=== PATIENT | female | born 1945 | race Caucasian/White ===

== ENCOUNTER 2019-05-08 05:56 | Emergency (ER) | payer MEDICARE, SELFPAY ==
[2019-05-08 06:02] VITALS: BP 184/77; PULSE 76; RESP 16; TEMP 36.9; O2SAT 96; BMI 23.0
[2019-05-08 06:04] VITALS: BP 161/82; PULSE 77; RESP 14; O2SAT 96
[2019-05-08 06:05] VITALS: PULSE 76
--- NOTE | 2019-05-08 06:06 | PC.NURSE ---
Patient states that she was going to get some cheesecake out of the refrigerator and fell down and hit her right arm two days ago. Patient states that she cannot use her right arm without extreme pain. Patient states that she is having 10/10 pain in her right arm. Patient states that her right arm hurts from her shoulder down to her elbow.
--- NOTE | 2019-05-08 06:07 | W.ED.EXTPRO ---
HPI - Extremity Problem General: Chief complaint: Extremity Injury, Upper Stated complaint: r arm pain post fall Time Seen by Provider: 05/08/19 06:07 History of Present Illness: HPI Narrative: 73 yo female presents to the emergency room after a fall yesterday at home she is complaining of right upper arm pain inability to move the arm or use it. She can use her hand flex little bit at the elbow but is severely painful when she does so. She denies any other injuries denies striking her head no loss consciousness. Associated symptoms: Deny chest pain, fever(s) or rash Review of Systems Const: Denies: fever, chills, body aches, change in appetite, fatigue or malaise ENMT: Denies: throat pain, ear pain, nasal discharge or nasal congestion Card: Denies: chest pain, edema, shortness of breath on exertion or shortness of breath when lying down Resp: Denies: shortness of breath, productive cough or non-productive cough GI: Denies: abdominal pain, nausea, vomiting, vomiting blood, coffee grounds in vomit, diarrhea, constipation, bloating, blood in stool or black tarry stool : Denies: flank pain, difficulty urinating, painful urination, urinary frequency or urinary urgency Skin/Breast: Denies: rash or itching PFSH ED PFSH: Social History Smoking and tobacco status: current every day smoker Physical Exam Const: COMMON NORMALS: no apparent distress GENERAL APPEARANCE: cooperative and comfortable ORIENTATION/CONSCIOUSNESS: Yes awake, Yes oriented to person, Yes oriented to place and Yes oriented to time HENMT: COMMON NORMALS: normocephalic, head/scalp atraumatic, hearing grossly normal bilaterally, external ears normal, EAC's normal, TM's normal bilaterally, nasal mucous membranes and turbinates normal, moist oral mucous membranes and oropharynx normal HEAD & SCALP: normocephalic and atraumatic NOSE: nasal mucous membranes and turbinates normal EXTERNAL EAR: Yes external ears normal EXTERNAL AUDITORY CANAL: EAC's normal TYMPANIC MEMBRANE: TM's normal bilaterally Eye: COMMON NORMALS: PERRL, EOMs intact bilaterally, conjunctivae normal and no scleral icterus CONJUNCTIVA: Yes conjunctivae normal PUPIL: Yes PERRL Neck/C-Spine: COMMON NORMALS: full ROM, no lymphadenopathy, supple and no JVD Lymph: LYMPHATIC: no lymphadenopathy noted and no lymphedema noted Resp: COMMON NORMALS: normal respiratory effort, no retractions, no use of accessory muscles and clear to auscultation bilaterally AUSCULTATION: clear to auscultation bilaterally Cardio: COMMON NORMALS: no JVD, regular rate, regular rhythm and no murmurs RATE: regular rate RHYTHM: regular rhythm GI: COMMON NORMALS: soft to palpation and no hepatosplenomegaly AUSCULTATION: Yes normoactive bowel sounds PALPATION: Yes soft, No tender, No guarding and Yes no hepatosplenomegaly Extremity: COMMON NORMALS: normal capillary refill, no clubbing, cyanosis or edema, no calf tenderness and no pedal edema RIGHT UPPER EXTREMITY: Yes upper arm (Pain and swelling to the proximal humerus consistent with proximal humerus fracture) Right upper arm: Yes inspection and Yes palpation Neuro: SENSORIUM/ORIENTATION: Yes oriented to person, Yes oriented to place and Yes oriented to time Skin: COMMON NORMALS: no rashes or lesions noted GENERAL SKIN EXAM: no rashes or lesions noted Course ED course: Impacted proximal humerus fracture. Will sling arm hydrocodone as needed for pain follow-up with Ortho later this week. Vital Signs: Vital signs: Vital Signs Temperature 98.5 F 05/08/19 06:02 Pulse Rate 64 05/08/19 07:31 Respiratory Rate 18 05/08/19 07:31 Blood Pressure 155/68 05/08/19 07:31 Pulse Oximetry 97 05/08/19 07:31 Discharge Plan Discharge Patient Disposition: Home, Self-Care Clinical Impression: Fracture of humerus Qualifiers: Encounter type: initial encounter Humerus Location: proximal Fracture type: closed Fracture alignment: nondisplaced Laterality: right Condition: Stable Prescriptions: New hydrocodone-acetaminophen 5-325 mg tablet 1 tab PO Q6H PRN (Reason: pain) Qty: 15 RF: 0 Discharge Orders: Discharge Order (Routine); Ordered 05/08/19 Ordered By: Akhil Nuñez Referrals: Abundio Rogel DO [Primary Care Provider] - Discharge Diet: Usual diet Discharge Activity: Increase activity as tolerated Patient Instructions: Hydrocodone/Acetaminophen (By mouth), Fractures - Humerus, How to Use a Sling (GEN), Sling - Wearing Activity Restrictions/Additional Instructions: Referral to Ortho. Remain in sling until released by orthopedics. Discharge Date/Time: 05/08/19 09:02 Coding Level of Care Code ED Investor Relations Coordinator for Ric Ma
--- NOTE | 2019-05-08 06:14 | XR_ITS ---
WS: [id number] [id number] REASON FOR EXAM: fall, pain FINDINGS: Impacted surgical neck fracture of the right humerus. The right shoulder shows normal acromioclavicular joint and clavicles. XR/[place] [id number] IMPRESSION: Impacted surgical neck fracture of the proximal humerus.
[2019-05-08 07:00] VITALS: BP 80/58; PULSE 70; RESP 18; O2SAT 95
[2019-05-08 07:31] VITALS: BP 155/68; PULSE 64; RESP 18; O2SAT 97
[2019-05-08] MEDS: HYDROcodone-acetaminophen 5-325 mg Tablet 1 TAB PO (07:37)
--- NOTE | 2019-05-08 08:00 | PC.NURSE ---
Attempted to contact patient family member per her request for a ride home. Unable to reach, I have left a voicemail for Katherine in regards to patient discharge and need for ride. I have asked her to call back to the ER.
--- NOTE | 2019-05-08 08:34 | PC.NURSE ---
Attempted to contact patient family member again. No answer. Left a second message. Spoke with the patient regarding the family member ride. Patient does have medicaid and agrees to attempting to set up [employer] transportation.
--- NOTE | 2019-05-08 08:53 | PC.NURSE ---
Contacted [employer], spoke with Linda. The patient has a different type of spend-down medicaid and does not quialify for [employer] transportation. Will discharge to waiting area and continue to wait on family member to call back; patient verbalized understanding of this.
--- NOTE | 2019-05-09 08:41 | DCPLANNER ---
used car manager had message to schedule a follow up appointment for patient with ortho. used car manager called ortho, spoke with Pat, gave clinic patients information. used car manager was told that patients information would be printed and reviewed. Clinic will call complex case manager and patient with appointment information.
--- NOTE | 2019-05-11 15:24 | DCPLANNER ---
division operations manager called ortho to confirm if a follow up appointment had been scheduled for patient. division operations manager was told that clinic has attempted to contact patient at the phone number [phone] and it was not in service. division operations manager tried to contact patient at this number and was told that the number was not in service. Clinic did call patients Katherine davenport at [phone] and left a voicemail for patient to return clinics phone call to schedule an appointment.
== END 2019-05-08 09:02 | disposition home or self-care (01) ==
LOC: ER 07:47
PROVIDERS: Emergency Provider Family Medicine; Family Provider Family Medicine; PCP Family Medicine
DX: S42.211A Unspecified displaced fracture of surgical neck of right humerus, initial encounter for closed fracture (principal); W19.XXXA Unspecified fall, initial encounter; Y92.009 Unspecified place in unspecified non-institutional (private) residence as the place of occurrence of the external cause; F17.200 Nicotine dependence, unspecified, uncomplicated
CPT/HCPCS: 29240; 73060; 99282; 99283

== ENCOUNTER → 2019-05-18 11:00 | Outpatient (BNVA) | payer MEDICARE, SELFPAY | PROVIDERS: Family Provider Family Medicine; PCP Family Medicine; Referring Provider Family Medicine; Visit Provider Specialist | DX: S42.201A Unspecified fracture of upper end of right humerus, initial encounter for closed fracture (principal); X58.XXXA Exposure to other specified factors, initial encounter | CPT/HCPCS: 73030 ==

== ENCOUNTER 2019-05-18 14:52 | Outpatient (CLI) | payer MEDICARE, SELFPAY | END 2019-05-18 14:53 | disposition home or self-care (01) | LOC: SPT 14:53 | PROVIDERS: Family Provider Family Medicine; PCP Family Medicine; Visit Provider Specialist | DX: S42.301D Unspecified fracture of shaft of humerus, right arm, subsequent encounter for fracture with routine healing (principal); S42.201A Unspecified fracture of upper end of right humerus, initial encounter for closed fracture; X58.XXXA Exposure to other specified factors, initial encounter | CPT/HCPCS: 73030; L3670 ==

== ENCOUNTER → 2019-09-11 13:36 | Outpatient (BNVA) | payer MEDICARE, SELFPAY | PROVIDERS: Family Provider Family Medicine; PCP Family Medicine; Referring Provider Nurse Practitioner; Visit Provider Specialist | DX: S42.254A Nondisplaced fracture of greater tuberosity of right humerus, initial encounter for closed fracture (principal); W01.0XXD Fall on same level from slipping, tripping and stumbling without subsequent striking against object, subsequent encounter | CPT/HCPCS: 73030 ==

== ENCOUNTER → 2019-09-13 13:43 | Outpatient (BNVA) | payer MEDICARE, SELFPAY | PROVIDERS: Family Provider Family Medicine; PCP Family Medicine; Visit Provider Nurse Practitioner Family | DX: R19.7 Diarrhea, unspecified (principal) | CPT/HCPCS: 80053; 85025 ==

== ENCOUNTER 2021-06-08 17:04 | Emergency (ER) | payer MEDICARE, SELFPAY ==
[2021-06-08 17:09] VITALS: BP 171/96; PULSE 75; RESP 16; TEMP 37.1; O2SAT 96; BMI 24.7
--- NOTE | 2021-06-08 17:22 | CTR_ITS ---
PROCEDURE INFORMATION: Exam: CT Chest Without Contrast; Diagnostic Exam date and time: 06/08/2021 5:58 PM Age: 75 years old Clinical indication: Injury or trauma; Blunt trauma (contusions or hematomas); Patient HX: C/O L sdied back/chest pain after fall; Additional info: Fall with chest pain left TECHNIQUE: Imaging protocol: Diagnostic computed tomography of the chest without contrast. Radiation optimization: All CT scans at this facility use at least one of these dose optimization techniques: automated exposure control; mA and/or kV adjustment per patient size (includes targeted exams where dose is matched to clinical indication); or iterative reconstruction. COMPARISON: 1. CR XR shoulder RT min 2V* [id number] 09/11/2019 1:43 PM 2. CTA Chest-Pulmonary Emboli 03/16/2014 8:00 PM RADIATION DOSE METRICS: Total DLP (mGy-cm): 414.8 FINDINGS: Lungs: There are emphysematous and fibrotic changes in the upper lobes. Bibasilar nonspecific consolidation is present. In the right lower lobe, there is bronchiectasis with bronchial wall thickening and debris or mucous in the bronchi. Pleural spaces: There are small bilateral pleural effusions. Heart: There is severe atherosclerotic calcification of the coronary arteries. There is no evidence of pericardial fluid collections. Esophagus: No focal wall thickening. Mediastinal space: There are no enlarged mediastinal lymph nodes or masses. Aorta: There is no thoracic aortic aneurysm. There are mild scattered atherosclerotic calcifications throughout the thoracic aorta. Lymph nodes: No enlarged hilar lymph nodes. Diaphragm: There is a small sliding hiatal hernia. Liver: Normal in size and homogeneous density. Bones/joints: There are mildly displaced fractures of the lateral left 7th, and posterior 8th and 9th ribs. Chronic appearing mild superior endplate compression fractures of T10 and L1. Soft tissues: Unremarkable. CT/CT chest wo con [id number] IMPRESSION: Acute mildly displaced fractures of the left 7th (lateral), 8th and 9th (posterior) ribs. Chronic interstitial fibrosis and mild emphysematous changes. Bibasilar areas of consolidation with bronchiectasis and bronchial debris in the right lower lobe. Findings are worsened since the comparison CTA. This may represent chronic bronchiectasis, aspiration pneumonia.
--- NOTE | 2021-06-08 17:23 | W.ED.FALL ---
HPI - Fall General: Chief Complaint: Fall Stated Complaint: LEFT RIB PAIN S/P FALL Time Seen by Provider: 06/08/21 17:06 Source: patient Mode of arrival: EMS Limitations: no limitations History of Present Illness: This patient comes to the emergency department via EMS. She sustained a trip and fall at home on Wednesday. She states that she tripped over her walker while trying to avoid her dog. She states she fell on her left side. She states she did not hit her head but struck predominantly her trunk on her left side. She states that she crawled to the couch and then recovered and has been dealing with the pain for the past 2 days. She states that she finally decided to come to the emergency department to ensure that she did not harm herself seriously. She states she has been eating and drinking normally. She is not any vomiting or diarrhea. She is is a tobacco user and has a chronic cough. She denies any heart disease and takes no daily medications to include no anticoagulants or antiplatelet agents. She states she is able to move her extremities without difficulty. Fall from: standing Place fall occurred: home Loss of consciousness: None Context: tripped/slipped Location of injury: chest Quality: sharp and stabbing Associated symptoms-after fall: Denies abdominal pain, confusion, headache(s), neck pain or numbness Review of Systems Const: Denies: fever(s) or chills Eyes: Denies: change in vision, blurry vision or blind spots ENMT: Denies: throat pain, odynophagia or hoarseness Card: Denies: palpitations, irregular heart rhythm, syncope or pre-syncope Resp: Reports: non-productive cough and pain on inspiration; Denies: wheezing or stridor GI: Denies: abdominal pain, nausea, vomiting or diarrhea : Denies: difficulty voiding, dysuria or urinary frequency Musc: Denies: neck pain, extremity pain, extremity swelling or joint pain Skin/Breast: Denies: rash Neuro: Denies: headache(s), numbness in extremities, weakness in extremities or confusion Adolfo/Lymph: Denies: easy bruising or easy bleeding All/Imm: Denies: urticaria PFSH ED PFSH: Medical History (Updated 06/08/21 @ 20:22 by Carmelo Waller DO) Fracture of surgical neck of humerus Surgical History History of carpal tunnel surgery bilateral History of hip surgery Social History Smoking and tobacco status: current every day smoker Alcohol intake: never Physical Exam Narrative: EXAM NARRATIVE: Patient is alert makes good eye contact. Const: COMMON NORMALS: no acute distress, average body habitus, patient oriented x3 and alert GENERAL APPEARANCE: cooperative HENMT: COMMON NORMALS: normocephalic, atraumatic, Normal nasal mucous membranes and turbinates present, moist oral mucous membranes and oropharynx normal HEAD & SCALP: normocephalic and atraumatic FACE & SINUS: normal facial exam NOSE: Normal nasal mucous membranes and turbinates present Eye: COMMON NORMALS: Equal, round and reactive pupils present, EOMs intact bilaterally and conjunctivae normal CONJUNCTIVA: Yes conjunctivae normal PUPIL: Yes Equal, round and reactive pupils present Neck/C-Spine: COMMON NORMALS: no JVD CERVICAL SPINE: Yes cervical ROM normal OTHER: She has no midline tenderness cervical spine. There is no evidence of step-off to palpation. She is able to range her neck left and the right 45 degrees as well as forward bend 15 degrees without any discomfort. Chest: CHEST: Yes tenderness, No laceration, No abrasion and No Ecchymosis present OTHER: She has significant tenderness to palpation of her left trunk and rib cage. There is no associated ecchymosis, subcutaneous emphysema. Resp: COMMON NORMALS: normal respiratory effort and clear to auscultation bilaterally AUSCULTATION: clear to auscultation bilaterally Cardio: COMMON NORMALS: no JVD, regular rate and No murmurs present (Cardio) RATE: regular rate GI: COMMON NORMALS: Normal to inspection, nondistended, normoactive bowel sounds present, Soft to palpation and non-tender PALPATION: Yes Soft to palpation OTHER: Pelvis is nontender to AP and lateral compression. Back/Pelvis: COMMON NORMALS: thoracic and lumbar spine normal to inspection, no thoracic nor lumbar tenderness and straight leg raise negative bilaterally Extremity: COMMON NORMALS: normal to inspection, full ROM and no calf tenderness NARRATIVE EXTREMITY EXAM: No bony tenderness or deformity on extremities Neuro: COMMON NORMALS: patient oriented x3, moves all extremities, no focal motor deficits and no sensory deficits noted SENSORIUM/ORIENTATION: Yes alert CRANIAL NERVES: Yes CN normal except as noted SPEECH: speech normal Psych: COMMON NORMALS: mental status grossly normal Skin: COMMON NORMALS: no rashes or lesions noted, no wounds and turgor normal GENERAL SKIN EXAM: no rashes or lesions noted and turgor normal Course Reevaluation(s): Reevaluation #1: ShePain remains controlled with analgesia. Is not having any evidence of hypoxia, tachypnea, respiratory distress etc. No history of hematuria etc. No new findings on reexamination. Time: 20:20 Vital Signs: Vital signs: Vital Signs Temperature 98.8 F 06/08/21 17:09 Pulse Rate 78 06/08/21 18:50 Respiratory Rate 16 06/08/21 18:50 Blood Pressure 157/78 06/08/21 18:50 Pulse Oximetry 96 06/08/21 18:50 MDM - Fall Medical Decision Making Patient with isolated rib fractures 789 on the left. No evidence of other injury at this time. No evidence of hypoxia or other concerns at this time. We will go ahead and provide her incentive spirometer to help with pulmonary toilet. We will also provide her with analgesia. I discussed current findings and expected course. She is going to call and arrange a follow-up with a primary care physician in the next 2 weeks. We also discussed return precautions she is stable at this time for discharge. Medical Records I reviewed the patient's medical records. Lab Data I reviewed the patient's lab results. Radiology Impressions Chest CT 06/08/21 17:22 IMPRESSION: Acute mildly displaced fractures of the left 7th (lateral), 8th and 9th (posterior) ribs. Chronic interstitial fibrosis and mild emphysematous changes. Bibasilar areas of consolidation with bronchiectasis and bronchial debris in the right lower lobe. Findings are worsened since the comparison CTA. This may represent chronic bronchiectasis, aspiration pneumonia. Discharge Plan Discharge Patient Disposition: Home Clinical Impression: Left rib fracture Condition: Stable Prescriptions: New hydrocodone-acetaminophen 5-325 mg tablet 1 tab PO Q8H Qty: 20 0RF No Action albuterol sulfate [ProAir HFA] 90 mcg/actuation HFA aerosol inhaler 2 puff INHALATION Q6H PRN (Reason: shortness of breath or wheezing) Qty: 18 5RF (DME) Shoulder Immobilizer Qty: 1 0RF Rx Instructions: As directed Discharge Orders: Discharge ED (Routine); Ordered 06/08/21 Ordered By: Carmelo Waller Referrals: Abundio Rogel, [Primary Care Provider] - Discharge Diet: Advance as tolerated Discharge Activity: Increase activity as tolerated Patient Instructions: Rib Fracture (ED), Opioid Safety Activity Restrictions/Additional Instructions: Take your usual medications and inhalers as needed. Use the incentive spirometer daily to help prevent pneumonia and other pulmonary complications. Take your pain medicine as needed. Call your doctor this coming week to arrange a follow-up in the next 2 weeks and additional treatment in her medications as needed. If you have worsening symptoms, shortness of breath, fevers return to this or the nearest emergency department immediately. Coding Level of Care Code ED Clinical Staff Anesthesiologist for Ric Ma Exam Comprehensive
[2021-06-08] MEDS: ondansetron 2 mg/ML SDV 2 mL 4 MG IVP (17:24)
[2021-06-08] MEDS: fentaNYL 50 mcg/mL INJ 2mL IVP (17:25)
[2021-06-08 18:50] VITALS: BP 157/78; PULSE 78; RESP 16; O2SAT 96
[2021-06-08] MEDS: HYDROcodone-acetaminophen 5-325 mg Tablet 1 TAB PO ×2 (18:53→20:30)
[2021-06-08 20:37] VITALS: BP 150/80; PULSE 70; RESP 16; O2SAT 95
== END 2021-06-08 20:39 | disposition home or self-care (01) ==
PROVIDERS: Emergency Provider Emergency Medicine; PCP Family Medicine
DX: S22.42XA Multiple fractures of ribs, left side, initial encounter for closed fracture (principal); W18.09XA Striking against other object with subsequent fall, initial encounter; F17.210 Nicotine dependence, cigarettes, uncomplicated
CPT/HCPCS: 71250; 96374; 96375; 99283; J2405; J3010

== ENCOUNTER → 2022-03-04 10:08 | Outpatient (BNVA) | payer MEDICARE, SELFPAY | PROVIDERS: PCP Family Medicine; Visit Provider Nurse Practitioner Family | DX: M25.562 Pain in left knee (principal); S82.092A Other fracture of left patella, initial encounter for closed fracture; X58.XXXA Exposure to other specified factors, initial encounter | CPT/HCPCS: 73562 ==

== ENCOUNTER 2022-04-10 15:12 | Emergency (ER) | payer MEDICARE, SELFPAY ==
--- NOTE | 2022-04-10 15:20 | ED_ITS ---
HPI - CPR General: Chief Complaint: Cardiac Arrest/CPR Stated Complaint: CARDIAC ARREST Time Seen by Provider: 04/10/22 15:19 Limitations: altered mental status and other (Cardiac arrest) History of Present Illness: Ms. Larios is a 76-year-old lady with unclear past medical history presenting to the emergency department for cardiac arrest. Apparently she had sudden onset of chest pain and shortness of breath and collapsed shortly after 911 have been activated. Bystander CPR was performed for approximately 1 to 2 minutes prior to EMS arrival at which point the took over CPR. Initial reported rhythm was ventricular fibrillation however patient is decompensated to PEA. EMS reports easy intubation and high-quality CPR performed. She has had approximately 1 hour of CPR. See EMS documentation for full list of medications however she has received numerous doses of epinephrine, amiodarone, sodium bicarbonate, 1 L of crystalloid. Review of Systems General: Reports: ROS unobtainable due to medical condition (Cardiac arrest) [facility] ED PFSH: Medical History (Updated 04/18/22 @ 00:00 by KARRIE Hyatt) Fracture of surgical neck of humerus Surgical History History of carpal tunnel surgery bilateral History of hip surgery Social History Smoking and tobacco status: current every day smoker Alcohol intake: never Physical Exam Const: GENERAL APPEARANCE: ill appearing and patient mechanically ventilated ORIENTATION/CONSCIOUSNESS: Yes Other orientation findings (Cardiac arrest) HENMT: COMMON NORMALS: normocephalic and atraumatic HEAD & SCALP: normocephalic and atraumatic Eye: COMMON NORMALS: conjunctivae normal CONJUNCTIVA: Yes conjunctivae normal SCLERA: sclerae normal Neck/C-Spine: COMMON NORMALS: supple GENERAL: Yes trachea midline Resp: COMMON NORMALS: clear to auscultation bilaterally AUSCULTATION: clear to auscultation bilaterally OTHER: Patient intubated prehospital and ventilated with bag valve mask, clear and equal breath sounds bilaterally. Cardio: OTHER: Cardiac arrest with no palpable pulse GI: COMMON NORMALS: Soft to palpation PALPATION: Yes Soft to palpation Extremity: GENERAL: Yes normal exam except as noted and No edema Neuro: SENSORIUM/ORIENTATION: Yes Orientation impaired OTHER: Cardiac arrest MDM - Cardiac Arrest/CPR Medical Decision Making 76-year-old lady presenting via EMS in cardiac arrest. Per supplemental information provided by court-appointed guardian patient had fairly sudden symptoms prior to cardiac arrest. Upon arrival patient has been intubated by EMS and has had ongoing CPR. Approximately 1 hour of CPR by the time she arrives in the emergency department without ROSC. CPR was continued with high-quality chest compressions and bag valve ventilations via ET tube. Medication and resuscitation guidance supplemented by ACLS protocols. Patient continued to be in PEA with deterioration into agonal PEA despite resuscitative efforts. See nursing documentation for full medication timeline. Endotracheal tube placement confirmed by adequate oxygen saturation when CPR being performed, equal breath sounds bilaterally on auscultation. [id number] ultrasound reveals no organized cardiac activity, occasional focal agonal contraction. Given duration of CPR and deterioration of cardiac activity from ventricular fibrillation due to agonal rhythm I do not believe that continued CPR will lead to return of spontaneous circulation and the likelihood of meaningful neurologic recovery is essentially nil. I did discuss the case via telephone with the patient's court-appointed DPOA/guardian who is in agreement to stop CPR. I updated the patient's daughters in the emergency department and offered my condolences. They do not wish to remain in the emergency department or see the patient prior to termination of resuscitation. I offered my condolences. [id number] ultrasound confirms no cardiac activity with last pulse check. Re suscitative efforts stopped. TOD 1528 Medical Records I reviewed the patient's medical records. Lab Data I reviewed the patient's lab results. Critical Care Time Critical Care Time: Critical Care Time: Yes Total Critical Care Time: 35 Attestation: Due to a high probability of clinically significant, possibly life threatening deterioration, the patient required my highest level of attention and preparedness to intervene emergently and I personally spent this critical care time directly and personally managing the patient. This critical care time included obtaining a history; examining the patient; pulse oximetry; ordering and review of laboratory and imaging studies; arranging urgent treatment with development of a management plan; evaluation of patient's response to treatment; frequent reassessment; and, discussions with other providers as applicable. It was exclusive of separately billable procedures. Primary system involved is cardiac Discharge Plan Discharge Patient Disposition: Clinical Impression: Cardiac arrest, Sudden cardiac Condition: Stable Prescriptions: No Action Unable to Assess Referrals: Abundio Rogel DO [Primary Care Provider] - Probable Cause of Probable cause of : Sudden cardiac arrest Coding Level of Care Code ED Animal Pathologist for Chg Fwd Exam Comprehensive
--- NOTE | 2022-04-10 15:32 | PC.PHAR ---
unable to verify medications with pt due to cpr in progress -[facility] pharmacy states not filled anything recently states last filled mobic 15mg daily last filled 09/16/21 5 refills-ambrosio 06/09/21 and abel written 09/13/2019 -
--- NOTE | 2022-04-10 16:21 | PC.NURSE ---
1510 Pt arrived to ED. CPR in progress upon arrival. Pt intubated with 6.5 ET tube at 22@lip upon arrival. Rt Tibial IO in placed upon arrival. EMS reports administering a total of 7 Epi, 1 Liter NS, 450mg of Amiodarone, and 100mg of Bicarb while performing 50-55minutes of CPR en route to facility. 1512 Epi given 1513 Pulse Check. Asystole. CPR resumed. 1515 Epi Given 1516 1.2 Narcan given. 1 amp bicarb given. 1517 Pulse Check. Asystole. CPR resumed 1518 1g Calcium Gluconate given. Pulse check. Asystole. CPR resumed. 1519 Epi given. 1520 Pulse Check. Asystole. CPR resumed. 1521 Rt IO unable to be used. 1522 Pulse Check. Asystole. CPR resumed. 1524 Pulse Check. Asystole. CPR resumed. Lt Tibial IO placed. 1526 Epi given. Pulse Check. Asystole. CPR resumed. 1528 Dr Martinez called Time of 1528.
== END 2022-04-10 16:37 | disposition expired ==
PROVIDERS: Emergency Provider Emergency Medicine; PCP Family Medicine
DX: I46.9 Cardiac arrest, cause unspecified (principal); F17.210 Nicotine dependence, cigarettes, uncomplicated
CPT/HCPCS: 99285; J0171; J2310; J3490; J7030